=== PATIENT | female | born 1975 | race Caucasian/White ===

== ENCOUNTER 2016-09-11 18:58 | Emergency (ER) | payer OTHER ==
[~2016-09-11] VITALS: Ht 170.2 cm; Wt 64.5 kg
[2016-09-11 19:01] VITALS: BP 104/67; PULSE 90; RESP 16; O2SAT 96
[2016-09-11 20:55] VITALS: BP 157/96; PULSE 81; RESP 16; O2SAT 99
--- NOTE | 2016-09-11 21:01 | DRSVH ---
PROCEDURE: X-RAY CHEST, TWO VIEWS ([id number]) INDICATIONS: 41-year-old female with intermittent fevers and cough for 4 days. TECHNIQUE: 2 views of the chest were acquired. COMPARISON: None. FINDINGS: Surgical changes and devices: None. Lungs and pleura: No pleural effusions or pneumothorax. Patchy bibasilar air space opacities are pre sent. Mediastinum: Mediastinal contours are normal. Heart size is normal. Bones and chest wall: No suspicious bony abnormalities. Soft tissues appear unremarkable. IMPRESSION: Findings consistent with evolving bibasilar bronchopneumonia. Dictated by: Dagoberto Sullivan M.D. on 09/11/2016 at 21:00 Approved by: Dagoberto Sullivan M.D. on 09/11/2016 at 21:00
--- NOTE | 2016-09-11 21:53 | ED.REPORT ---
HPI-Dyspnea / Wheezing Date of Service Sep 11, 2016 ED Provider: Dr. Sri Peterson MD A 41 year old female presents to the ED complaining of dyspnea that became increasingly worse 1 week ago. Patient was sent from Urgent Care with concern for pneumonia. Associated symptoms include 102 F fever, non-productive cough, diaphoresis, chills, decreased appetite, decreased fluid intake, insomnia, vomiting, diarrhea, and a slight productive cough w/ white sputum that has since resolved. Vomiting occurs after repeated coughing. Patient has been taking Robitussin and acetaminophen with no relief. Her symptoms have become increasingly worse since initial onset 14 days ago. Nursing Notes Stated Complaint: PNEUMONIA, POSS SEPSIS, SENT FROM URGENT CARE Chief Complaint: Respiratory Distress Nursing Notes Reviewed: Yes Allergies: Coded Allergies: No Known Allergies (Unverified , 09/11/16) Scheduled Azithromycin (Zithromax) 250 Mg Tablet 250 MG PO DAILY General Time Seen by MD: 21:52 Chief Complaint Other (Dyspnea) Hx Obtained From: Patient Arrived By: Walk-in Sudden in Onset?: No Onset Occurred: More than a week ago... (2 weeks) Symptom Duration: Since onset Associated with: Reports: Cough, Diaphoresis, Fever, Nausea, Vomiting Pertinent Negative: Pt denies other symptoms Recent Healthcare: No recent hospitalization, Recent doctor visit (Sent from Urgent Care) Past Medical History Past Medical History Denies Denies: Diabetes mellitus, Hypertension Past Surgical History Denies Smoking History Never Smoker Social History Other Social History: Good social support, Local resident Ambulatory Status Independent Review of Systems Decreased appetite Decreased fluid intake Constitutional: Reports: Chills, Fever Respiratory: Reports: Non-productive cough, Prod cough, white (Resolved earlier this week ), Shortness of breath Skin: Reports Diaphoresis Complete sys rev & neg: except as marked. GI: Reports: Diarrhea, Nausea, Vomiting Neurologic: Reports: Headache, Denies: Change LOC Psychiatric: Reports: Insomnia Physical Exam Initial Vital Signs Vital Signs (First) Date Time Temp Pulse Resp B/P Pulse Ox O2 Delivery O2 Flow Rate FiO2 09/11/16 19:01 37.2 90 16 104/67 96 Room Air Initial VS: Reviewed Head / Eyes: Atraumatic, Normocephalic, PERRL Extremities: Vascular intact, Neuro intact, No swelling, No tenderness Skin: Warm, Dry, No cyanosis Neurologic: Alert, Oriented, Nonfocal Psychiatric: Mood/affect normal, Behavior normal, Normal thought content General/Constitutional: Awake, Alert, No acute distress Neck: Atraumatic, Supple Respiratory / Chest: Atraumatic, Breath sounds NL, Breath sounds = bilat, No respiratory distress Cardiovascular: Heart rate NL, Regular rhythm, Heart sounds NL Interpretation & Diagnostics Lab Results Interpretation Result Diagram: 09/11/16215409/11/[id number] Test 09/11/16 20:03 09/11/16 21:55 Hold Urine Received (Received) White Blood Count 21.4th/mm3 (3.8-10.1) Red Blood Count 4.07mil/mm3 (3.90-5.20) Hemoglobin 12.1g/dL (12.0-15.6) Hematocrit 35.6% (35.0-46.0) Mean Corpuscular Volume 87.5fL (81-100) Mean Corpuscular Hemoglobin 29.7pg (27.0-35.0) Mean Corpuscular Hemoglobin Concent 34.0% (32.0-37.0) Red Cell Distribution Width 13.1% (12.3-15.4) Platelet Count 457bil/L (150-400) Neutrophils (%) (Auto) 85.1% (40-74) Lymphocytes (%) (Auto) 9.2% (14-46) Monocytes (%) (Auto) 5.2% (4-12) Eosinophils (%) (Auto) 0.1% (0-5) Basophils (%) (Auto) 0.1% (0-3) Sodium Level 135mEq/L (134-144) Potassium Level 3.8mEq/L (3.5-5.2) Chloride Level 98mEq/L (97-108) Carbon Dioxide Level 19mmol/L (18-29) Blood Urea Nitrogen 7mg/dL (6-24) Creatinine 0.58mg/dL (0.57-1.00) Estimat Glomerular Filtration Rate 164mL/min (>59) Glucose Level 121mg/dL (60-99) Calcium Level 9.1mg/dL (8.5-10.1) Total Bilirubin 0.5mg/dL (0.0-1.2) Aspartate Amino Transf (AST/SGOT) 29U/L (0-50) Alanine Aminotransferase (ALT/SGPT) 40U/L (0-32) Alkaline Phosphatase 118U/L (25-150) Total Protein 7.8g/dL (6.4-8.4) Albumin 3.6g/dL (3.4-5.0) Hold Foy Top Tube Received (Received) X-Ray Chest Interpretation Chest Xray Interpretation: IMPRESSION: Findings consistent with evolving bibasilar bronchopneumonia. Dictated by: Dagoberto Sullivan M.D. on 09/11/2016 at 21:00 Interpretation / Wet Read by: Interpret - Radiologist Re-Eval/Medical Decision Med Decision/Clinical Course 41-year-old female with no past medical history sent here from urgent care with concern for pneumonia. Differential diagnosis includes but is not limited to viral versus bacterial upper respiratory infection versus pneumonia versus influenza. Given the patient's timeline, at this time, I do not feel she requires influenza screen, as she would be out of the window for treatment. Her chest x-ray is concerning for pneumonia. She has a leukocytosis without left shift. Her CMP is unremarkable. She was given a dose of Rocephin in the emergency department, along with her first dose of azithromycin. She was given a prescription for the remainder of her azithromycin. Her blood pressure was mildly low, however, this is her baseline. She was not tachycardic and not hypoxic. She has been given very strict return precautions and will follow up with her primary care physician. Re-Evaluation/Progress : Time of Eval: 22:03 Patient Status: Condition improved Re-Evaluation/Progress Note: Patient is rechecked. She is informed of her X-ray results, lab results and diagn.osis All of the patient's questions are adressed. She understands and agrees with the treatment plan to discharge. Counseled Regarding: Diagnosis, Lab results, Need for follow-up, When/why to return to ED Discharge & Departure Impression: Primary Impression: Pneumonia Pneumonia type: due to unspecified organism Laterality: bilateral Lung location: unspecified part of lung Qualified Code: J18.9 - Pneumonia, unspecified organism Disposition: Home Discharge Condition All VS Reviewed: Yes Condition: Stable Patient Instructions: Community-acquired Pneumonia (ED) Additional Instructions: Thank you for trusting us with your care this evening. Your emergency department results including lab work and chest X-ray are indicative of pneumonia. Take azithromycin as directed. Make sure to get plenty of rest and plenty of fluids Please schedule a follow-up appointment with your primary care physician in the next 2-3 days for a recheck. Please return to the emergency department for any new or worsening conditions including any difficulty breathing, worsening fevers, or lightheadedness. Referrals: Shivani Brooks DO (PCP) Kristieibheather Attestation Portions of this note were transcribed by David Doherty. I, Dr. Peterson personally performed the history, physical exam and medical decision-making; I reviewed and confirmed the accuracy of the information in the transcribed note. Signed by: Nicole Orozco, 09/11/16 1035. copies to: Shivani Brooks Rebecca A MD Sep 11, 2016 21:53 DAVID DOHERTY Sep 11, 2016 22:03
[2016-09-11] MEDS ORDERED: 0.9% Sodium Chloride 1,000 ML IV ONE (22:02)
[2016-09-11] MEDS ORDERED: cefTRIAXone Inj 1,000 MG, Lidocaine PF 1% Inj 2.1 ML in Syringe 0 EACH IM ONE (22:05)
[2016-09-11 22:08] LABS: BASOPHILS % (AUTO) 0.1 % (0-3); EOSINOPHILS % (AUTO) 0.1 % (0-5); MONOCYTES % (AUTO) 5.2 % (4-12); Mean Corpuscular Hemoglobin 29.7 pg (27.0-35.0); Mean Corpuscular Volume 87.5 fL (81-100); NEUTROPHILS % (AUTO) 85.1 % (40-74); Platelet Count 457 bil/L (150-400)
[2016-09-11] MEDS ORDERED: cefTRIAXone Inj 1,000 MG in Dextrose 5% Minibag Plus 50 ML IV ONE (22:40)
[2016-09-11] MEDS ORDERED: ZIT250 PO (23:36)
[2016-09-11 23:45] VITALS: BP 91/56; PULSE 72; RESP 18; O2SAT 98
== END 2016-09-11 23:45 | disposition home or self-care (01) ==
LOC: SED 18:58
DX: J18.9 Pneumonia, unspecified organism (principal)
CPT/HCPCS: 36415; 71020; 80053; 81025; 85025; 96365; 99284; J0696; J7030